=== PATIENT | female | born 1985 | race Two or more races ===

== ENCOUNTER 2019-10-13 08:26 | Outpatient (CLI) | payer OTHER | END 2019-10-13 08:28 | disposition home or self-care (01) | LOC: RAD 08:26 | DX: N39.0 Urinary tract infection, site not specified (principal); N21.8 Other lower urinary tract calculus ==

== ENCOUNTER 2019-10-14 17:57 | Emergency (ER) | payer OTHER ==
[~2019-10-14] VITALS: Ht 162.6 cm; Wt 74.4 kg
== END 2019-10-14 21:15 | disposition home or self-care (01) ==
LOC: ER 17:57
DX: N39.0 Urinary tract infection, site not specified (principal); R31.29 Other microscopic hematuria; R10.84 Generalized abdominal pain; R68.83 Chills (without fever)

== ENCOUNTER 2019-10-31 08:04 | Outpatient (CLI) | payer OTHER | END 2019-10-31 08:13 | disposition home or self-care (01) | LOC: TOM 08:04 | DX: N20.1 Calculus of ureter (principal) ==

== ENCOUNTER 2020-03-06 10:48 | Emergency (ER) | payer OTHER ==
[~2020-03-06] VITALS: Ht 162.6 cm; Wt 76.2 kg
[2020-03-06] MEDS ORDERED: CIPRO500 MG (11:15)
[2020-03-06] MEDS ORDERED: CIPRO500 MG PO (15:49)
== END 2020-03-06 16:49 | disposition home or self-care (01) ==
LOC: ER 10:48
DX: N13.1 Hydronephrosis with ureteral stricture, not elsewhere classified (principal); N20.0 Calculus of kidney

== ENCOUNTER 2021-08-09 09:04 | Emergency (ER) | payer OTHER ==
[~2021-08-09] VITALS: Ht 162.6 cm; Wt 77.1 kg
[~2021-08-09 09:04] MED LIST: CIPRO500 MG; CIPRO500 MG PO
== END 2021-08-09 13:05 ==
LOC: ER 09:04
DX: J01.80 Other acute sinusitis (principal); B34.9 Viral infection, unspecified